=== PATIENT | female | born 1990 | race Caucasian/White ===

== ENCOUNTER 2025-07-01 04:01 | Inpatient (IN) | payer OTHER ==
[2025-06-30 10:47] LABS: Hematocrit 32.7 % (36.0-46.0); Hemoglobin 10.9 g/dL (12.2-16.2); Mean Corpuscular Hemoglobin 29.7 pg (28.0-32.0); Mean Corpuscular Volume 89.3 fL (80.0-100.0); Nucleated Red Blood Cells % 0.1 %
[2025-06-30 10:54] LABS: Urine Protein, UAD Negative (Negative)
[2025-06-30 10:59] LABS: INR 0.92 (0.9-1.15); Partial Thromboplastin Time 25.8 SEC (24.5-34.5); Prothrombin Time 9.8 sec (9.3-11.8)
[2025-06-30 11:00] LABS: Alanine Aminotransferase 12 U/L (7-40); Albumin 4.2 g/dL (3.2-4.8); Alkaline Phosphatase 113 U/L (46-116); Anion Gap 9 (5-15); BUN/Creatinine Ratio 14.0 (10.0-20.0); Calcium 8.7 mg/dL (8.7-10.4); Carbon Dioxide 22 mmol/L (20-31); Glucose 85 mg/dL (74-106); Potassium 3.9 mmol/L (3.5-5.1); Sodium 139 mmol/L (136-145); Total Protein 7.1 g/dL (5.7-8.2)
[2025-06-30 11:05] LABS: Bilirubin, Total 0.2 mg/dL (0.2-1.0); Blood Urea Nitrogen 8 mg/dL (9-23); Chloride 108 mmol/L (98-107)
[~2025-07-01] VITALS: Ht 175.3 cm; Wt 87.1 kg
[2025-07-01] VITALS (12 sets, daily range): BP systolic 102–144; BP diastolic 65–89; PULSE 69–97; RESP 12–16; TEMP 97.9–98.8; O2SAT 93–100
[2025-07-01] MEDS: LACTATED RINGER'S 1,000 ML IV ONE (04:15)
[2025-07-01] MEDS: LACTATED RINGER'S 1,000 ML IV SCH (05:47)
--- NOTE | 2025-07-01 07:42 | DVHHP2 ---
OB CC & HPI Date Date of Admission: Jul 01, 2025 Patient Identification: : 3 Para: 1 EDC: Jul 09, 2025 EGA: 38 6/7 Chief Complaints: Reason for admission: section Indication for : desires repeat Admission Nurse Assessment Rev: Yes Past Medical History Cardiac: No pertinent Hx Pulmonary: No pertinent Hx Central Nervous System: No pertinent Hx GI: No pertinent Hx Hemotology/Oncology: No pertinent Hx Hepatobiliary: No pertinent Hx Psychiatric: No pertinent Hx Musculoskeletal: No pertinent Hx Rheumotologic: No pertinent Hx Infectious Disease: No peritnent Hx ENT: No pertinent Hx Renal/: No pertinent Hx Endocrine: No pertinent Hx Dermatology: No pertinent Hx OB History OB History Care: None Ultrasounds: Normal mid trimester US Obstetrical Complications: None Medical Complications: None Allergies: Coded Allergies: NO KNOWN ALLERGIES (Unverified , 07/01/25) Current Medications Current Medications Medications (Trade) Dose Ordered Sig/Antelmo Route PRN Reason Start Time Stop Time Status Last Admin Lactated Ringer's 1,000 ml @ 125 mls/hr Q8H IV 07/01/25 04:15 07/01/25 05:47 Family & Social History Family/Social History Blood Type: A+ Rubella: immune RPR/VDRL: Negative HBsAG: Negative Review of Systems Constitutional: No symptom reported Ears, Nose, & Throat: No symptom reported Eyes: No symptom reported Pulmonary/Respiratory: No symptom reported Cardiovascular: No symptom reported Gastrointestinal: No symptom reported Genitourinary: No symptom reported Musculoskeletal: No symptom reported Skin: No symptom reported Psychiatric: No symptom reported Endocrine: No symptom reported Hemotologic/Lymphatic: No symptom reported OB Admission Exam Physical Exam HEENT: TMs Normal, Fontanelles Normal, Nasal Mucosa Normal, Eyes non-injected, Oropharynx Normal, PERRLA, Moist Membranes, EOMI Heart: Rhythm Normal Lungs: Clear Abdomen: Non tender Extremities: Normal Reflexes: Normal Cervical Dilatation: None Membranes: Intact Heart Rate: 140's Accelerations: Accelerations Present Decelerations: No Decelerations Short Term Variability: Present Half-Way Variability: Average (6-25) Contractions on Admission: None OB Plan Plan Admitting Diagnosis: REPEAT SECTION Plan: Section Other Plan: Suspicious complications alternatives discussed patient adamantly wants proceed: This discuss with the limited to infection bleeding anesthesia Klonopin demonstrate adjacent organs nerves bowel vessels ureters bladder. Despite these risks patient only wants to proceed. ANA HERNÁNDEZ DO Jul 01, 2025 07:42
--- NOTE | 2025-07-01 07:51 | DVHOP2 ---
Operative Report - 2 Report Details Date: 07/01/25 Preop Diagnosis: 38 6/7 previously assumed this has like to repeat scheduled by Dr. Anaya Postop Diagnosis: Save Surgeon: Ephraim Mendoza Anesthesiologist: Spine anesthesia Radha Gama MD Anesthesia: Regional Drains: [place] Consent: The patient was informed of the risks and benefits of the procedure. These include but are not limited to complications of anesthesia, postoperative infection, incomplete relief of symptoms, recurrence of symptoms, damage to blood vessels, nerves and tendons, deep venous thrombosis, pulmonary embolism and possible need for repeat surgery in the future. Complications: none Estimated Blood Loss: 650cc Fluids: see anesthesia log Findings: Infant vigorous crying tone APGARS 8/9 Indications for Surgery: Previous Name of Procedure Performed Repeat low-transverse section Procedure Details Procedure Details: Patient states the operating placed in sitting position spinal plus the difficulty she has in place left little toe prepped history of fascia low Pfannenstiel incision made through old scar carried through the rectus fascia in the midline carried laterally rectus muscles were per midline. Number identified and intervals sharp dissection vesical peritoneum was taken off lower uterine segment a low uterine transverse incision made with scalpel then hourglassing cramp membranes are ruptured hemostat clear fluid infant to be vertex position 1/2 plates lower uterine segment and has essentially delivered spontaneously nose mouth obstructive chosen torsion delivery without difficulty. 62nd delayed cord clamp was performed cord clamped and handed off to waiting respiratory and OB nurses. Blood sample taken placenta removed uterus exteriorized cleared of all clots and debris and closed with double layer of 2-0 Vicryl. It complete hemostasis at this point EBL 650: Findings mild scar tissue normal tubes ovaries uterus and pelvic anatomy. Uterus placed to Camelia after clearing the cul-de-sac as well as right and left gutter of all clots and debris copiously irrigated instruments sponge count correct x1. Peritoneum) continues to 0 Vicryl rectus fascia closed with a running continuous 0 PDS can prescribe fascia approximated with 2-0 chromic and the skin was closed with a 3- 0 Prolene on a Antonio needle benzoin Steri-Strips placed ABD and pressure dressing placed uterus firm patient was frog-leg then the vagina was cleared of all clots and debris no abnormal active bleeding noted. taken to PACU recovery in stable condition with guarded transferred to nursery. Specimen: Umbilical blood sample Condition Good Disposition Packing ANA MENDOZA DO Jul 01, 2025 07:51
[2025-07-01] MEDS: ceFAZolin 2 GM/D5W50ml 50 ML IV ONE (10:55)
[2025-07-01] MEDS ORDERED: KETOROLAC TROMETH 30 MG/ML 1ML VIAL ONE (11:02)
[2025-07-01] MEDS ORDERED: ONDANSETRON HCL 4 MG/2 ML VIAL ONE (11:02)
[2025-07-01] MEDS ORDERED: GLYCOPYRROLATE 0.2 MG/ML 1ML VIAL ONE (11:02)
[2025-07-01] MEDS ORDERED: MORPHINE SULF PF 5 MG/10 ML VIAL ONE (11:02)
[2025-07-01] MEDS ORDERED: fentaNYL CITRATE 100 MCG/2 ML VL ONE (11:02)
[2025-07-01] MEDS: GELATIN 1 SPONGE SIZE 100 TOP ONE (12:13)
[2025-07-01] MEDS ORDERED: ONDANSETRON HCL 4 MG/2 ML VIAL IV PRN ×2 (12:45)
[2025-07-01] MEDS: ACETAMINOPHEN IV 1000 MG/100ML (10MG/ML) IV ONE (12:45)
[2025-07-01] MEDS ORDERED: diphenhydrAMINE HCL 50 MG/1 ML VL IV PRN (12:45)
[2025-07-01] MEDS ORDERED: KETOROLAC TROMETH 30 MG/ML 1ML VIAL IV PRN (12:45)
[2025-07-01] MEDS ORDERED: NALOXONE HCL 0.4 MG/ML VIAL IV PRN (12:45)
[2025-07-01] MEDS: LACT. RINGERS/OXYTOCIN 20UNITS 1,000 ML IV ONE (13:45)
[2025-07-01] MEDS ORDERED: ACETAMINOPHEN IV 1000 MG/100ML (10MG/ML) IV PRN (13:45)
[2025-07-01] MEDS: ceFAZolin 1GM/50ML 50 ML IV SCH (19:00)
[2025-07-01] MEDS: ACETAMINOPHEN IV 1000 MG/100ML (10MG/ML) IV PRN (19:57)
[2025-07-01] MEDS: ONDANSETRON HCL 4 MG/2 ML VIAL IV PRN (21:06)
[2025-07-01 21:25] LABS: Amphetamine Screen, Urine Neg (NEGATIVE); Barbiturate Scree,Urine Neg (NEGATIVE); Benzodiazephine Screen, Urine Neg (NEGATIVE); Cannabinoid Screen, Urine Neg (NEGATIVE); Cocaine Screen, Urine Neg (NEGATIVE); Opiate Scree,Urine Neg (NEGATIVE); Phencyclidine Screen, Urine Neg (NEGATIVE)
[2025-07-02] VITALS (11 sets, daily range): BP systolic 96–127; BP diastolic 60–83; PULSE 69–97; RESP 16–18; TEMP 97.7–98.7; O2SAT 95–98
--- NOTE | 2025-07-02 05:56 | DVHPN2 ---
Chief Complaints Patient reports: No new complaints, Feels better Nursing reports: No new complaints, No abdominal pain, No chest pain, No dizziness, No cough Objective Vitals Vital Signs Date Time Temp Pulse Resp B/P (MAP) Pulse Ox O2 Delivery O2 Flow Rate FiO2 07/02/25 05:30 70 16 96 07/02/25 03:30 98.6 98.6 07/01/25 19:00 Room Air Medications Current Medications Medications (Trade) Dose Ordered Sig/Antelmo Route PRN Reason Start Time Stop Time Status Last Admin Acetaminophen (Ofirmev) 1,000 mg Q8HPRN PRN IV MODERATE PAIN (4-6 PAIN SCALE) 07/01/25 17:00 07/02/25 16:59 07/01/25 19:57 Cefazolin Sodium 50 ml @ 100 mls/hr Q8H IV 07/01/25 19:00 07/02/25 11:29 07/02/25 02:55 Diphenhydramine HCl (Benadryl Injection) 25 mg Q4HP PRN IV FOR ITCHING 07/01/25 12:45 Ephedrine Sulfate (ePHEDrine SULFATE) 10 mg [id number] PRN IV Systolic BP <90; Call Provider 07/01/25 13:45 07/02/25 13:44 Ketorolac Tromethamine (Toradol Injection) 30 mg Q6HP PRN IV MODERATE PAIN (4-6 PAIN SCALE) 07/01/25 12:45 07/06/25 12:44 Ondansetron HCl (Zofran) 4 mg Q4HP PRN IV NAUSEA / VOMITING 07/01/25 12:45 Cancel Ondansetron HCl (Zofran) 4 mg Q4HP PRN IV NAUSEA / VOMITING 07/01/25 13:45 07/01/25 21:06 General: Normal Neck: Normal Lungs: Normal Cardiovascular: Normal Abdominal: Normal (Wound clean dry intact uterus firm 12 weeks size) Musculoskeletal: Normal Extremities: Normal Skin: Normal Neurological: Normal Studies Laboratory Tests 06/30/25 10:16 Test 06/30/25 10:16 Range/Units Serum Glucose 85 74-106 mg/dL Ass/Plan Assessment Postop day 1 section stable improved Plan See postop day 1 orders advanced care. ANA HERNÁNDEZ DO Jul 02, 2025 05:56
[2025-07-02 06:35] LABS: Hematocrit 26.9 % (36.0-46.0); Hemoglobin 9.1 g/dL (12.2-16.2); Mean Corpuscular Hemoglobin 29.8 pg (28.0-32.0); Mean Corpuscular Volume 87.7 fL (80.0-100.0); Nucleated Red Blood Cells % 0.0 %
[2025-07-02] MEDS: RHO (D) IMMUNE GLOBULIN 300 MCG INJ IM ONE (08:44)
[2025-07-02] MEDS ORDERED: BISACODYL 10 MG RECT SUPP PR PRN (10:30)
[2025-07-02] MEDS ORDERED: HYDROcodone-ACET 5/325MG TAB PO PRN (10:30)
[2025-07-02] MEDS ORDERED: HYDR-4072 PO (12:26)
[2025-07-02] MEDS ORDERED: DOCU-94 PO (12:26)
[2025-07-02] MEDS ORDERED: IBUP-1456 PO (12:26)
[2025-07-02] MEDS: HYDROcodone-ACET 5/325MG TAB PO PRN (12:47)
[2025-07-02] MEDS: SIMETHICONE 80 MG CHEWABLE TABLET PO SCH (12:47)
[2025-07-02] MEDS: IBUPROFEN 800 MG TAB PO PRN (21:05)
[2025-07-02] MEDS: DOCUSATE SOD 100 MG CAP PO SCH (22:03)
[2025-07-03 03:05] VITALS: BP 108/59; PULSE 79; RESP 17; TEMP 97.8; O2SAT 96
--- NOTE | 2025-07-03 05:59 | DVHDS2 ---
Discharge Summary Date of Admission Jul 01, 2025 at 04:01 Date of Discharge: Jul 03, 2025 Admitting Diagnosis prev section Wounds: c/d/i Labs/Diagnostic Data: Laboratory Results Test 07/02/25 05:43 06/30/25 10:16 White Blood Count 13.1 10^3/uL (4.4-10.8) Red Blood Count 3.07 10^6/uL (4.0-5.20) Hemoglobin 9.1 g/dL (12.2-16.2) Hematocrit 26.9 % (36.0-46.0) Mean Corpuscular Volume 87.7 fL (80.0-100.0) Mean Corpuscular Hemoglobin 29.8 pg (28.0-32.0) Mean Corpuscular Hemoglobin Concent 33.9 g/dL (32.0-36.0) Red Cell Distribution Width 14.0 % (11.8-14.3) Platelet Count 211 10^3/uL (140-450) Mean Platelet Volume 8.8 fL (6.9-10.8) Neutrophils (%) (Auto) 81.5 % (37.0-80.0) Lymphocytes (%) (Auto) 8.6 % (10.0-50.0) Monocytes (%) (Auto) 9.1 % (0.0-12.0) Eosinophils (%) (Auto) 0.5 % (0.0-7.0) Basophils (%) (Auto) 0.3 % (0.0-2.0) Neutrophils # (Auto) 10.6 10 ^3/uL (1.6-8.6) Lymphocytes # (Auto) 1.1 10 ^3/uL (0.4-5.4) Monocytes # (Auto) 1.2 10 ^3/uL (0-1.3) Eosinophils # (Auto) 0.1 10 ^3/uL (0-0.8) Basophils # (Auto) 0 10 ^3/uL (0-0.2) Nucleated Red Blood Cells 0.0 % Prothrombin Time 9.8 sec (9.3-11.8) Prothrombin Time INR 0.92 (0.9-1.15) Activated Partial Thromboplast Time 25.8 SEC (24.5-34.5) Urine Color Light-yellow (Yellow) Urine Clarity Clear (Clear) Urine pH 7.0 (5.0-9.0) Urine Specific [place] 1.013 (1.001-1.035) Urine Protein Negative (Negative) Urine Ketones Negative (Negative) Urine Blood Negative /uL (Negative) Urine Nitrite Negative (Negative) Urine Bilirubin Negative (Negative) Urine Urobilinogen Normal mg/dL (Negative) Urine Leukocyte Esterase Negative /uL (Negative) Urine RBC <1 /hpf (0 - 4) Urine Microscopic WBC 5 /HPF (0-5) Urine Squamous Epithelial Cells Few /hpf (<5) Urine Bacteria None seen /hpf (None Seen) Urine Hyaline Casts Few /lpf (0 - 2) Urine Glucose Normal mg/dL (Normal) Sodium Level 139 mmol/L (136-145) Potassium Level 3.9 mmol/L (3.5-5.1) Chloride Level 108 mmol/L (98-107) Carbon Dioxide Level 22 mmol/L (20-31) Anion Gap 9 (5-15) Blood Urea Nitrogen 8 mg/dL (9-23) Creatinine 0.57 mg/dL (0.550-1.02) Glomerular Filtration Rate Calc 121 mL/min (>90) BUN/Creatinine Ratio 14.0 (10.0-20.0) Serum Glucose 85 mg/dL (74-106) Calcium Level 8.7 mg/dL (8.7-10.4) Total Bilirubin 0.2 mg/dL (0.2-1.0) Aspartate Amino Transferase (AST) 14 U/L (13-40) Alanine Aminotransferase (ALT) 12 U/L (7-40) Alkaline Phosphatase 113 U/L (46-116) Total Protein 7.1 g/dL (5.7-8.2) Albumin 4.2 g/dL (3.2-4.8) Urine Opiates Screen Neg (NEGATIVE) Urine Fentanyl Screen Neg (NEGATIVE) Urine Barbiturates Screen Neg (NEGATIVE) Urine Phencyclidine Screen Neg (NEGATIVE) Urine Amphetamines Screen Neg (NEGATIVE) Urine Benzodiazepines Screen Neg (NEGATIVE) Urine Cocaine Screen Neg (NEGATIVE) Urine Cannabinoids Screen Neg (NEGATIVE) Treponema pallidum Antibody Non-reactive (Negative) Hepatitis C Antibody Negative (Negative) Other Laboratory Tests 07/02/25 05:43 06/30/25 10:16 Brief Hx & Hospital Course: elective section BTL Consults/Reason for consult none Operations or Procedures Repeat low-transverse section BTL Condition at Discharge: Good Final Diagnosis/Problems List Same Discharge Disposition: Home Discharge Instruct/Medications Diet: Regular Activity: Light activity (pelvic rest 6 weeks) Follow Up/Referral: 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 Patient was counseled about treatment plan, medications, possible side effects, patientverbalized understanding. All questions were answered to the best of my ability. This discharge took greater then 30 minutes in planning, reviewing documentation, counseling the patient, and discussing with other team members." ASSESSMENT ASSESSMENT Assessment Save Visit Coding OBGYN Date of Service: Jul 03, 2025 Billing Provider: ANA HERNÁNDEZ DO [employer] Common Visit Codes: 08213-REM/OBS SAME DATE (LOW), 38756-WDV/OBS SAME DATE (MOD) [employer] Procedure Codes: 14160-[facility] OB CARE, DEL ANA HERNÁNDEZ DO Jul 03, 2025 05:59
[2025-07-03 06:51] VITALS: BP 121/81; PULSE 89; RESP 15; TEMP 98.2; O2SAT 98
[2025-07-03 10:36] VITALS: BP 109/78; PULSE 89; RESP 18; TEMP 98.3; O2SAT 97
== END 2025-07-03 10:36 | disposition home or self-care (01) | DRG 788 ==
LOC: LDRP 04:01
PROVIDERS: ADMIT Obstetrics & Gynecology; ATTEND Obstetrics & Gynecology
PROC: 10D00Z1 Extraction of Products of Conception, Low, Open Approach (ICD-10-PCS; principal; 2025-07-01 11:23)
PROC: 30233S1 Transfusion of Nonautologous Globulin into Peripheral Vein, Percutaneous Approach (ICD-10-PCS; 2025-07-02)
DX: O34.211 Maternal care for low transverse scar from previous cesarean delivery (principal); Z37.0 Single live birth; Z3A.38 38 weeks gestation of pregnancy
CPT/HCPCS: 36415; 59025; 80053; 80307; 81001; 85025; 85610; 85730; 86780; 86803; 86850; 86900; 86901; 90384; 94760; 94762; 96360; 96361; 96372; 96374; G0378; J0131; J1885; J2405; J2590